=== PATIENT | female | born 1945 | race Caucasian/White ===

== ENCOUNTER 2017-06-01 22:50 | Inpatient (IN) | payer MEDICARE, MEDICAID ==
[~2017-06-01] VITALS: Ht 160 cm; Wt 60.8 kg
[2017-06-01] MEDS ORDERED: ACETAMINOPHEN 650 MG/SUPP.RECT RC ONE ×2 (23:00→23:38)
[2017-06-01] MEDS ORDERED: LEVOFLOXACIN 750 MG /D5W 150ML 150 ML IV ONE ×2 (23:00→23:38)
[2017-06-01] MEDS ORDERED: IV NS 0.9% 1,000 ML BAG IV ONE (23:00)
[2017-06-01 23:40] LABS: BASOPHILS % (AUTO) 1.7 % (0.0-2.0); EOSINOPHILS % (AUTO) 0.3 % (0.0-6.0); HEMATOCRIT 36 % (33-45); HEMOGLOBIN 11.7 g/dL (11.5-14.8); LYMPHOCYTES # (AUTO) 0.3 /CMM (0.8-4.8); LYMPHOCYTES % (AUTO) 8.8 % (20.0-44.0); MEAN CORPUSCULAR HEMOGLOBIN 27 PG (26.0-33.0); MEAN CORPUSCULAR HGB CONC 32 g/dl (31.0-36.0); MEAN CORPUSCULAR VOLUME 84 fL (82-100); MONOCYTES % (AUTO) 3.5 % (2.0-12.0); NEUTROPHILS % (AUTO) 85.7 % (43.0-81.0); PLATELET COUNT (AUTO) 154 /CMM (150-450); RDW COEFFICIENT OF VARIATION 16.2 (11.5-15.0); RED BLOOD CELL COUNT(AUTO) 4.32 MIL/uL (4.0-5.2); WHITE BLOOD COUNT (AUTO) 3.5 K/uL (4.3-11.0)
[2017-06-01 23:41] LABS: BASOPHILS # (AUTO) 0.1 /CMM (0.0-0.2); MONOCYTES # (AUTO) 0.1 /CMM (0.1-1.30)
[2017-06-01 23:54] LABS: INR 1.14 (0.87-1.13); PROTHROMBIN TIME 11.9 SECS (9.5-12.7)
[2017-06-02] VITALS (8 sets, daily range): BP systolic 93–130; BP diastolic 46–78
[2017-06-02 00:02] LABS: ALANINE AMINOTRANSFERASE 24 U/L (12-78); ALBUMIN 2.4 g/dL (3.4-5.0); ALKALINE PHOSPHATASE 232 U/L (46-116); ASPARTATE AMINOTRANSFERASE 29 U/L (15-37); BILIRUBIN,DIRECT 0.2 mg/dL (0.0-0.2); BILIRUBIN,TOTAL 0.6 mg/dL (0.2-1.0); CALCIUM, SERUM 8.6 mg/dL (8.5-10.1); CARBON DIOXIDE 23 mmol/L (21-32); CHLORIDE 102 mmol/L (98-107); CREATININE 1.1 mg/dL (0.6-1.3); POTASSIUM 3.3 mmol/L (3.5-5.1); SODIUM SERUM 138 mmol/L (136-145); TOTAL PROTEIN, SERUM 7.9 g/dL (6.4-8.2); UREA NITROGEN, BLOOD 10 mg/dL (7-18)
[2017-06-02 00:03] LABS: GLUCOSE 415 mg/dL (74-106); TROPONIN I 0.597 ng/mL (0.00-0.056)
[2017-06-02] MEDS ORDERED: IV NS 0.9% 250 ML IV ONE (00:08)
[2017-06-02] MEDS ORDERED: IOHEXOL-300 100 ML VIAL IV ONE (00:08)
[2017-06-02] MEDS ORDERED: ONDANSETRON HCL/PF 4 MG/2 ML VIAL ONE ×3 (00:10→00:52)
[2017-06-02] MEDS ORDERED: HYDROMORPHONE INJ 2 MG/ML DISP.SYRIN ONE ×2 (00:11→00:36)
[2017-06-02] MEDS ORDERED: ASPIRIN 300 MG/SUPP.RECT RC ONE ×2 (00:13→00:30)
[2017-06-02] MEDS ORDERED: HYDROMORPHONE 1 MG/1 ML DISP.SYRIN IV ONE (00:30)
[2017-06-02] MEDS ORDERED: VANCOMYCIN 1 GM VIAL ONE (00:44)
[2017-06-02] MEDS ORDERED: PIPERACILLIN /TAZOBACTAM 3.375 G VIAL IV ONE (00:44)
[2017-06-02] MEDS ORDERED: PIPERACILLIN /TAZOBACTAM 3.375 G in IV D5W 50 ML IV ONE (01:00)
[2017-06-02] MEDS ORDERED: VANCOMYCIN 1 GM in IV D5W 250 ML IV ONE (01:00)
[2017-06-02] MEDS ORDERED: INSULIN REGULAR, HUMAN 100 UNIT/ML 10 ML VIAL SQ ONE (02:00)
[2017-06-02] MEDS ORDERED: ONDANSETRON HCL/PF 4 MG/2 ML VIAL IV ONE ×2 (02:00)
[2017-06-02] MEDS ORDERED: IV NS 0.9% 1,000 ML BAG IV ONE (02:00)
[2017-06-02] MEDS ORDERED: INSULIN REGULAR, HUMAN 100 UNIT/ML 10 ML VIAL ONE (02:02)
--- NOTE | 2017-06-02 02:20 | NUR ---
Called report to [facility]
[2017-06-02] MEDS ORDERED: IV NS 0.9% 1,000 ML IV PRN (02:26)
[2017-06-02] MEDS ORDERED: MEROPENEM 500 MG in IV NS 0.9% 50 ML IV SCH (02:30)
[2017-06-02] MEDS ORDERED: MORPHINE SULFATE INJ 2 MG/ML DISP.SYRIN IV PRN (02:30)
[2017-06-02] MEDS ORDERED: Z GUARD REMEDY 2 OZ OINT TP PRN (02:30)
[2017-06-02] MEDS ORDERED: MAGNESIUM HYDROXIDE 30 ML UDC PO PRN (02:30)
[2017-06-02] MEDS ORDERED: HYDROCODONE/APAP 5/325MG 1 EACH TABLET PO PRN (02:30)
[2017-06-02] MEDS ORDERED: ONDANSETRON HCL/PF 4 MG/2 ML VIAL IVP PRN (02:30)
[2017-06-02] MEDS ORDERED: MAG HYDROX/AL HYDROX/SIMETH 30 ML UDC PO PRN (02:30)
--- NOTE | 2017-06-02 02:30 | NUR ---
TELE/RN NOTES PT RECEIVED FROM ER VIA [facility]. ON ROOM AIR, BREATHING EVEN AND UNLABORED. NO S/S OF DISTRESS NOTED. DENIES PAIN, SLIGHT NAUSEA NOTED. IV TO RAC AND LFA PATENT AND INTACT. JAMES PICC LINE NOTED BUT NOT IN USE, FOR CHEMO ONLY. ORIENTED PT TO ROOM AND CALL LIGHT. SIDE RAILS UPX2. PLACED ON TELE MONITOR SHOWING SINUS RHYTHM WITH HR AT 90. PT IS CALM AND COOPERATIVE, APPEARS SLIGHTLY WITHDRAWN. BED IN LOW/LOCKED POSITION WITH CALL LIGHT IN REACH. WILL CONTINUE TO MONITOR
[2017-06-02] MEDS ORDERED: MEROPENEM 500 MG VIAL IV ONE (03:11)
--- NOTE | 2017-06-02 03:30 | NUR ---
TELE/RN NOTES ANDREEA JONES NP MADE AWARE OF K=3.3 NO ORDERS TO REPLACE AT THIS TIME. REPEAT BMP ORDERED FOR 0500. WILL AWAIT FOR RESULT AND REPLACE IF NECESSARY.
[2017-06-02 03:45] LABS: APPEARANCE,URINE CLEAR (CLEAR); BILIRUBIN,URINE NEGATIVE (NEGATIVE); BLOOD, URINE 1+ Ery/uL (NEGATIVE); COLOR,URINE YELLOW (YELLOW); KETONES,URINE NEGATIVE (NEGATIVE); LEUKOCYTE ESTERASE ,URINE NEGATIVE (NEGATIVE); NITRITE, URINE NEGATIVE (NEGATIVE); PH,URINE 5.5 (5.0-8.0); PROTEIN,URINE NEGATIVE (NEGATIVE); UGLUCOSE 3+ mg/dL (NEGATIVE); UROBILINOGEN,URINE 0.2 EU/dL (0.2)
[2017-06-02 03:58] LABS: BACTERIA,URINE Rare /HPF (None Seen); SQUAMOUS EPITHELIAL CELL,UR Few /HPF (None Seen)
--- NOTE | 2017-06-02 05:53 | NUR ---
TELE/RN NOTES ANDREEA JONES NP MADE AWARE ABOUT RESULTS OF CT ABD/PELVIS. WILL REVIEW HIMSELF. NO ORDERS AT THIS TIME.
[2017-06-02] MEDS ORDERED: HEPARIN INFUSION/D5W 500 ML IV PRN (06:30)
--- NOTE | 2017-06-02 07:00 | NUR ---
TELE/RN CLOSING NOTES PT AWAKE, A/OX3. ON 2LPM O2 VIA NC, BREATHING EVEN AND UNLABORED. DENIES SOB OR PAIN AT THIS TIME. ON TELE MONITOR SHOWING SINUS RHYTHM WITH HR 71. DENIES N/V AT THIS TIME. IV TO LFA AND RAC PATENT AND INTACT. IVF RUNNING ORDERED. JAMES PICC LINE CURRENTLY NOT IN USE. MADE PT COMFORTABLE DURING SHIFT. ALL NEEDS MET. BED IN LOW/LOCKED POSTION, CALL LIGHT IN REACH. SIDE RAILS UPX2. ENDORSED TO AM SHIFT SERGIO. Addendum: 06/02/17 at 0805 by RAJESH BARBA RN PT DECLINES TAKING HOME MEDICATIONS.
[2017-06-02 07:11] LABS: BASOPHILS % (AUTO) 0.4 % (0.0-2.0); EOSINOPHILS % (AUTO) 0.1 % (0.0-6.0); HEMATOCRIT 31 % (33-45); HEMOGLOBIN 9.9 g/dL (11.5-14.8); LYMPHOCYTES # (AUTO) 0.5 /CMM (0.8-4.8); LYMPHOCYTES % (AUTO) 11.6 % (20.0-44.0); MEAN CORPUSCULAR HEMOGLOBIN 28 PG (26.0-33.0); MEAN CORPUSCULAR HGB CONC 33 g/dl (31.0-36.0); MEAN CORPUSCULAR VOLUME 85 fL (82-100); MONOCYTES # (AUTO) 0.4 /CMM (0.1-1.30); MONOCYTES % (AUTO) 8.2 % (2.0-12.0); NEUTROPHILS # (AUTO) 3.6 /CMM (1.8-8.9); NEUTROPHILS % (AUTO) 79.7 % (43.0-81.0); PLATELET COUNT (AUTO) 143 /CMM (150-450); RDW COEFFICIENT OF VARIATION 16.4 (11.5-15.0); WHITE BLOOD COUNT (AUTO) 4.6 K/uL (4.3-11.0)
[2017-06-02 07:24] LABS: CALCIUM, SERUM 7.3 mg/dL (8.5-10.1); CARBON DIOXIDE 23 mmol/L (21-32); CHLORIDE 110 mmol/L (98-107); CREATININE 0.7 mg/dL (0.6-1.3); GLUCOSE 176 mg/dL (74-106); POTASSIUM 3.2 mmol/L (3.5-5.1); SODIUM SERUM 141 mmol/L (136-145); UREA NITROGEN, BLOOD 7 mg/dL (7-18)
[2017-06-02] MEDS: BLOOD SUGAR DIAGNOSTIC 1 EACH STRIP IN SCH ×4 (07:25→22:19)
[2017-06-02] MEDS: PANTOPRAZOLE 40 MG TABLET.DR PO SCH (07:30)
--- NOTE | 2017-06-02 07:30 | NUR ---
RN MS NOTES PT IN BED, AWAKE, ALERT AND ORIENTED, NO COMPLAINT OF PAIN, NO COMPLAINT OF NAUSEA, RESPIRATIONS NORMAL AND NOT LABORED, IV FLUIDS INFUSING WELL, CALL LIGHT WITHIN EASY REACH.
[2017-06-02 07:49] LABS: TROPONIN I 1.747 ng/mL (0.00-0.056)
[2017-06-02] MEDS ORDERED: FEE PK DOSING 1 MIN EA MC ONE ×2 (08:53→08:54)
[2017-06-02] MEDS: MEROPENEM 500 MG in IV NS 0.9% 50 ML IV SCH ×2 (09:15→17:14)
--- NOTE | 2017-06-02 09:40 | NUR ---
CIRCULATION REPRESENTATIVE NOTES DR. WASSERMAN AND DR. VIDAL AWARE OF ELEVATED TROPONIN, ORDERS GIVEN.
[2017-06-02 10:30] LABS: THYROID STIMULATING HORMONE 1.703 uIU/mL (0.358-3.74)
[2017-06-02 10:36] LABS: MAGNESIUM 1.2 mg/dL (1.8-2.4)
[2017-06-02] MEDS ORDERED: Magnesium 1GM/D5W 100ML PREMIX 100 ML IV SCH (12:00)
--- NOTE | 2017-06-02 12:17 | NUR ---
CHAINSTITCH BINDER NOTES PT IN BED, RESTING, NOT IN PAIN OR DISTRESS, PT ABLE TO WALK WITH ASSISTANCE WITH PHYSICAL THERAPIST, DR. WASSERMAN INFORMED OF ABNORMAL LAB RESULTS, ORDERS GIVEN AND CARRIED OUT, REQUEST SENT TO [facility] TO OBTAIN OPERATIVE REPORT AND DISCHARGE SUMMARY REPORT, PT GAVE CONSENT.
[2017-06-02] MEDS: Magnesium 1GM/D5W 100ML PREMIX 100 ML IV SCH ×4 (12:35→16:30)
[2017-06-02] MEDS: Potassium Chloride 20 MEQ in IV NS 0.9% 1,000 ML IV PRN (13:57)
[2017-06-02] MEDS ORDERED: METOCLOPRAMIDE HCL 10 MG/2 ML VIAL IV PRN (15:30)
--- NOTE | 2017-06-02 18:40 | NUR ---
HEBREW PROFESSOR NOTES PT IN BED, AWAKE, NOTED WITH BODY TEMP OF 100.2 AND CHILLS, COOLING MEASURES PROVIDED, PT REFUSED TYLENOL, STATED THAT SHE HAS NOT BEEN EATING, RECHECKED BODY TEMP AFTER 30 MINUTES, TEMP IS 97.4, ASSISTED WITH DINNER, IV FLUIDS INFUSING WELL, PM CARE RENDERED, ALL NEEDS ATTENDED.
[2017-06-02] MEDS: VANCOMYCIN 1 GM in IV D5W 250 ML IV SCH (18:51)
[2017-06-02] MEDS: ACETAMINOPHEN 325 MG TABLET PO PRN (21:57)
--- NOTE | 2017-06-02 22:07 | NUR ---
received a call from the lab regarding blood culture result is positive. harry Butler is notified and ordered to repeat blood culture. will carry out the order and follow up.
[2017-06-03] VITALS: BP 106/52
[2017-06-03] MEDS: MEROPENEM 500 MG in IV NS 0.9% 50 ML IV SCH ×3 (02:18→17:50)
[2017-06-03 04:00] VITALS: BP 114/56
[2017-06-03] MEDS: Potassium Chloride 20 MEQ in IV NS 0.9% 1,000 ML IV PRN (05:42)
--- NOTE | 2017-06-03 06:34 | NUR ---
END OF SHIFT SUMMERY: patient is A&O X 4. on room , saturating well. denies pain. no episodes of N/V throughout the shift. patient is incontinent. still on IV abx. no acute respiratory/cardiac distress noted. will continue to monitor and endorse patient to AM shift nurse to continue the care. Addendum: 06/03/17 at 0640 by RAJANI TOURE RN END OF SHIFT SUMMERY: patient is A&O X 4. on room , saturating well. conected to the residential monitor , NSR. denies pain. no episodes of N/V throughout the shift. patient is incontinent. still on IV abx. no acute respiratory/cardiac distress noted. will continue to monitor and endorse patient to AM shift nurse to continue the care.
--- NOTE | 2017-06-03 07:30 | NUR ---
RN OPENING NOTES RECEIVED PATIENT IN BED RESTING. NO ACUTE DISTRESS, NO SOB NOTED. DENIES ANY PAIN OR DISCOMFORT. NO COMPLAINS OF NAUSEA OR VOMITING. IV SITE INTACT AND PATENT. BED IN LOCKED, LOW POSITION. SIDERAILS UPX2. CALL LIGHTS IN REACH. WILL CONTINUE TO MONITOR ACCORDINGLY.
[2017-06-03] MEDS: BLOOD SUGAR DIAGNOSTIC 1 EACH STRIP IN SCH ×4 (07:37→22:09)
[2017-06-03 08:00] VITALS: BP 113/61
[2017-06-03 08:15] LABS: BASOPHILS # (AUTO) 0.1 /CMM (0.0-0.2); EOSINOPHILS # (AUTO) 0.1 /CMM (0.0-0.7); EOSINOPHILS % (AUTO) 1.5 % (0.0-6.0); HEMATOCRIT 33 % (33-45); HEMOGLOBIN 10.5 g/dL (11.5-14.8); LYMPHOCYTES # (AUTO) 1.1 /CMM (0.8-4.8); LYMPHOCYTES % (AUTO) 22.1 % (20.0-44.0); MEAN CORPUSCULAR HEMOGLOBIN 27 PG (26.0-33.0); MEAN CORPUSCULAR HGB CONC 32 g/dl (31.0-36.0); MEAN CORPUSCULAR VOLUME 85 fL (82-100); MONOCYTES # (AUTO) 0.5 /CMM (0.1-1.30); MONOCYTES % (AUTO) 9.7 % (2.0-12.0); NEUTROPHILS # (AUTO) 3.3 /CMM (1.8-8.9); NEUTROPHILS % (AUTO) 65.7 % (43.0-81.0); PLATELET COUNT (AUTO) 167 /CMM (150-450); RDW COEFFICIENT OF VARIATION 16.6 (11.5-15.0); RED BLOOD CELL COUNT(AUTO) 3.93 MIL/uL (4.0-5.2)
[2017-06-03 08:41] LABS: CHOLESTEROL 98 mg/dL (<200); HDL CHOLESTEROL 19 mg/dL (40-60); LDL 60 mg/dL (0-99); THYROID STIMULATING HORMONE 1.967 uIU/mL (0.358-3.74); TRIGLYCERIDES 106 mg/dL (30-150); TROPONIN I 0.612 ng/mL (0.00-0.056)
[2017-06-03 08:43] LABS: ALANINE AMINOTRANSFERASE 20 U/L (12-78); ALBUMIN 1.6 g/dL (3.4-5.0); ALKALINE PHOSPHATASE 171 U/L (46-116); ASPARTATE AMINOTRANSFERASE 34 U/L (15-37); BILIRUBIN,TOTAL 0.4 mg/dL (0.2-1.0); CALCIUM, SERUM 7.7 mg/dL (8.5-10.1); CARBON DIOXIDE 27 mmol/L (21-32); CHLORIDE 109 mmol/L (98-107); CREATININE 0.6 mg/dL (0.6-1.3); GLUCOSE 150 mg/dL (74-106); MAGNESIUM 1.7 mg/dL (1.8-2.4); PHOSPHORUS 2.6 mg/dL (2.5-4.9); POTASSIUM 3.2 mmol/L (3.5-5.1); SODIUM SERUM 142 mmol/L (136-145); TOTAL PROTEIN, SERUM 6.1 g/dL (6.4-8.2); UREA NITROGEN, BLOOD 5 mg/dL (7-18)
[2017-06-03] MEDS: PANTOPRAZOLE 40 MG TABLET.DR PO SCH (08:43)
--- NOTE | 2017-06-03 09:00 | NUR ---
RN NOTES DR VIDAL ON BEDSIDE, MADE AWARE OF TROPONIN ELEVATED VALUES. WILL CONTINUE TO MONITOR ACCORDINGLY.
[2017-06-03] MEDS ORDERED: POTASSIUM CHLORIDE 20 MEQ TAB.PRT.SR PO SCH (11:00)
--- NOTE | 2017-06-03 11:30 | NUR ---
RN NOTES PATIENT AMBULATED WITH PT VIA WALKER AND WALKED AROUND THE UNIT, TOLERATED WELL.
[2017-06-03] MEDS: VANCOMYCIN 1 GM in IV D5W 250 ML IV SCH (12:12)
[2017-06-03] MEDS: Magnesium 1GM/D5W 100ML PREMIX 100 ML IV SCH ×2 (13:45→16:28)
[2017-06-03] MEDS: SOD FERRIC GLUC 125 MG in IV NS 0.9% 100 ML IV SCH (15:14)
[2017-06-03 16:00] VITALS: BP 139/71
--- NOTE | 2017-06-03 19:15 | NUR ---
RN OPEN NOTES RECEIVED PATIENT AWAKE IN BED WITH FAMILY AT BEDSIDE. A/O X3. NO SIGNS OF DISTRESS OR DISCOMFORT. BREATHING EVEN AND UNLABORED. ON 2LPM O2 VIA NC. IV ACCESS IN RAC WITH KCL 20MEQ W/ NS INFUSING, PATENT AND INTACT, NO SIGNS OF REDNESS OR INFILTRATION. BED IN LOW LOCKED POSITION WITH SIDE RAILS X2. CALL LIGHT WITHIN REACH. WILL CONTINUE TO MONITOR.
--- NOTE | 2017-06-03 19:20 | NUR ---
RN CLOSING NOTES PATIENT IN BED RESTING. NO ACUTE DISTRESS, NO SOB NOTED. ALL NEEDS ATTENDED AND PROVIDED. KEPT SAFE AND COMFORTABLE. BED IN LOW POSITION, LOCKED, HOB ELEVATED, SIDERAILS UPX2, CALL LIGHT IN REACH. ENDORSED TO IRRIGATOR SPRINKLING SYSTEM RN FOR SERGIO.
[2017-06-03 20:00] VITALS: BP 141/61
[2017-06-03 20:36] VITALS: BP 141/61
[2017-06-03] MEDS ORDERED: ENOXAPARIN SODIUM 40 MG/0.4 ML DISP.SYRIN SQ SCH (21:00)
[2017-06-03] MEDS: ACETAMINOPHEN 325 MG TABLET PO PRN (22:09)
--- NOTE | 2017-06-03 22:14 | NUR ---
RN NOTES PATIENT C/O OF HEADACHE 10/04. ADMINISTERED TYLENOL 650MG ORDERED. WILL CONTINUE TO MONITOR.
[2017-06-04] MEDS: MEROPENEM 500 MG in IV NS 0.9% 50 ML IV SCH ×2 (02:34→10:41)
[2017-06-04] MEDS: Potassium Chloride 20 MEQ in IV NS 0.9% 1,000 ML IV PRN (02:34)
[2017-06-04 06:45] LABS: CALCIUM, SERUM 7.6 mg/dL (8.5-10.1); CARBON DIOXIDE 30 mmol/L (21-32); CHLORIDE 104 mmol/L (98-107); CREATININE 0.6 mg/dL (0.6-1.3); GLUCOSE 205 mg/dL (74-106); MAGNESIUM 1.5 mg/dL (1.8-2.4); SODIUM SERUM 139 mmol/L (136-145); UREA NITROGEN, BLOOD 3 mg/dL (7-18)
[2017-06-04] MEDS: BLOOD SUGAR DIAGNOSTIC 1 EACH STRIP IN SCH ×2 (06:49→12:00)
[2017-06-04] MEDS: VANCOMYCIN 1 GM in IV D5W 250 ML IV SCH (07:19)
--- NOTE | 2017-06-04 07:30 | NUR ---
RN OPENING NOTES RECEIVED PATIENT IN BED RESTING. ON 2LPM O2 VIA NASAL CANULA. NO ACUTE DISTRESS, NO SOB NOTED. DENIES ANY PAIN OR DISCOMFORT. NO COMPLAINS OF NAUSEA OR VOMITING. IV SITE INTACT AND PATENT. BED IN LOCKED, LOW POSITION. SIDERAILS UPX2. CALL LIGHTS IN REACH. WILL CONTINUE TO MONITOR ACCORDINGLY.
--- NOTE | 2017-06-04 07:31 | NUR ---
RN CLOSING NOTES PATIENT AWAKE IN BED. A/O X3. NO SIGNS OF DISTRESS OR DISCOMFORT. BREATHING EVEN AND UNLABORED. ON 2LPM O2 VIA NC. IV ACCESS IN R HAND WITH KCL 20MEQ W/ NS INFUSING, PATENT AND INTACT, NO SIGNS OF REDNESS OR INFILTRATION. ALL NEEDS MET. NO SIGNIFICANT CHANGES THROUGH THE NIGHT. BED IN LOW LOCKED POSITION WITH SIDE RAILS X2. CALL LIGHT WITHIN REACH. ENDORSED TO AM SHIFT FOR SERGIO.
[2017-06-04 08:00] VITALS: BP 125/55
[2017-06-04] MEDS: Magnesium 1GM/D5W 100ML PREMIX 100 ML IV SCH ×2 (08:24→13:17)
[2017-06-04] MEDS: PANTOPRAZOLE 40 MG TABLET.DR PO SCH (08:24)
[2017-06-04] MEDS ORDERED: POTASSIUM CHLORIDE 20 MEQ TAB.PRT.SR PO SCH ×2 (08:30→11:00)
[2017-06-04] MEDS: BOOST GLUCOSE CONTROL VANILLA 237 ML BOX PO SCH ×2 (08:31→13:49)
--- NOTE | 2017-06-04 08:39 | NUR ---
RN NOTES PATIENT COULDNT SWALLOW POTASSIUM TABLET. CALLED PHARMACY TO CHANGE POTASSIUM TABLET TO PACKET.
[2017-06-04] MEDS: POTASSIUM CHLORIDE 20 MEQ POWDER PACKET PO SCH ×3 (08:42→13:49)
--- NOTE | 2017-06-04 13:51 | NUR ---
RN NOTES BISIOR CON POWDER 3 DOSES COMPLETED.
[2017-06-04] MEDS ORDERED: POTASSIUM CHLORIDE 20 MEQ POWDER PACKET PO SCH (14:00)
[2017-06-04] MEDS: SOD FERRIC GLUC 125 MG in IV NS 0.9% 100 ML IV SCH (14:00)
[2017-06-04 15:00] VITALS: BP 130/84
--- NOTE | 2017-06-04 15:00 | NUR ---
RN NOTES VERIFIED WITH CASE MANAGEMENT ABOUT PATIENT GOING HOME WITH WALKER AND BEDSIDE COMMODE, CASE MANAGEMENT SAID OK.
--- NOTE | 2017-06-04 15:50 | NUR ---
RN NOTES DISCHARGE PATIENT IN STABLE CONDITION ACCOMPANIED BY DAUGHTER AND ION JOYA. DISCHARGE TEACHING/INSTRUCTIONS GIVEN TO DAUGHTER, VERBALIZED UNDERSTANDING. DISCHARGE PAPERWORK GIVEN TO DAUGHTER. DISCONTINUED IV SITE, NO COMPLICATIONS NOTED. WALKER AND BEDSIDE COMMODE GIVEN FOR HOME USE.
[2017-06-04] MEDS ORDERED: VANCOMYCIN 1 GM in IV D5W 250 ML IV SCH (18:00)
== END 2017-06-04 15:41 | disposition home or self-care (01) | DRG 435 ==
LOC: ER 22:52 → TELE 06-02 01:02 → MED 06-03 10:56
PROVIDERS: ADMIT Nurse Practitioner Acute Care; ATTEND Nurse Practitioner Acute Care
DX: C25.9 Malignant neoplasm of pancreas, unspecified (principal); I21.4 Non-ST elevation (NSTEMI) myocardial infarction; I81 Portal vein thrombosis; E87.2 Acidosis; I95.9 Hypotension, unspecified; E83.42 Hypomagnesemia; C78.6 Secondary malignant neoplasm of retroperitoneum and peritoneum; C78.7 Secondary malignant neoplasm of liver and intrahepatic bile duct; E83.51 Hypocalcemia; D63.8 Anemia in other chronic diseases classified elsewhere; E86.0 Dehydration; K52.9 Noninfective gastroenteritis and colitis, unspecified; E87.6 Hypokalemia; Z90.411 Acquired partial absence of pancreas; Z90.49 Acquired absence of other specified parts of digestive tract
CPT/HCPCS: 36415; 71010-TC; 80048-TC; 80053-TC; 80061-TC; 80076-TC; 80202-TC; 81000-TC; 82306; 82728-TC; 82962-TC; 83540-TC; 83605-TC; 83690-TC; 83735-TC; 84100-TC; 84439-TC; 84443-TC; 84484-TC; 85025-TC; 85730-TC; 87040-TC; 87081-TC; 87086-TC; 87400; 93307-TC; 97116-TC; 97530-TC; A4216; J1170; J1815; J1956; J2185; J2405; J2543; J2765; J2916; J3370; J3475; J3480; J7030; J7050; J7060; Q9967